=== PATIENT | female | born 1990 | race Caucasian/White ===

== ENCOUNTER 2017-09-23 15:31 | Emergency (ER) | payer MEDICAID, OTHER ==
[~2017-09-23] VITALS: Ht 157.5 cm; Wt 108.0 kg
[~2017-09-23 15:31] MED LIST: ACET-1757 PO; CEFD300C37 PO; DOCU-131 PO; IBUP-1222 PO; None at this time
[2017-09-23 15:33] VITALS: BP 139/81
[2017-09-23 16:34] LABS: BASOPHILS # (AUTO) 0.05 x10^3/uL (0-0.1); BASOPHILS % (AUTO) 1 % (0-1); EOSINOPHILS # (AUTO) 0.14 x10^3/uL (0-0.4); EOSINOPHILS % (AUTO) 2 % (1-7); LYMPHOCYTES # (AUTO) 2.71 x10^3/uL (1-3.4); LYMPHOCYTES % (AUTO) 30 % (22-44); MD NO; MEAN CORPUSCULAR HGB CONC 32.6 g/dL (32.4-35.8); MEAN CORPUSCULAR VOLUME 79.6 fL (80-100); MEAN PLATELET VOLUME 9.4 fL (7.4-10.4); MONOCYTES # (AUTO) 0.53 x10^3/uL (0.2-0.8); MONOCYTES % (AUTO) 6 % (2-9); NEUTROPHILS # (AUTO) 5.67 x10^3/uL (1.8-6.8); NEUTROPHILS % (AUTO) 62 % (42-75); PLATELET COUNT 289 x10^3/uL (130-400)
[2017-09-23 16:34] LABS: MICROSCOPIC NOT IND
[2017-09-23 16:39] LABS: CULTURE INDICATED? NO
[2017-09-23 16:43] LABS: ANION GAP 9 mmol/L (5-15); CHLORIDE 108 mmol/L (98-107)
== END 2017-09-23 17:16 | disposition home or self-care (01) ==
LOC: ED 17:00
DX: S39.012A Strain of muscle, fascia and tendon of lower back, initial encounter (principal); X58.XXXA Exposure to other specified factors, initial encounter; Y93.89 Activity, other specified; Y92.89 Other specified places as the place of occurrence of the external cause; Y99.8 Other external cause status; Z87.442 Personal history of urinary calculi
CPT/HCPCS: 36415; 80048; 81003; 82040; 85025; 99284

== ENCOUNTER 2019-01-15 20:03 | Emergency (ER) | payer BC, OTHER ==
[~2019-01-15] VITALS: Ht 157.5 cm; Wt 103.6 kg
[2019-01-15 20:05] VITALS: BP 147/81
--- NOTE | 2019-01-15 20:15 | NUR ---
Cut 4th L digit w/ knife 2 hours ago. Bleeding appears controlled. FINGERTIP PURPLE/CAP REFILL >4, POOR SENSATION. ADVISED TO STOP SMOKING TO AID IN HEALING
[2019-01-15] MEDS ORDERED: LIDOCAINE-MPF 1%, 5ML ONE (20:19)
[2019-01-15] MEDS ORDERED: NEOSPORIN OINT. PKT 1 PACKET ONE (20:19)
[2019-01-15] MEDS ORDERED: DIPH,PERTUSS(ACELL),TET VAC/PF 0.5 ML IM-VACC ONE (20:30)
[2019-01-15] MEDS ORDERED: LIDOCAINE 1%, 10ML INFIL ONE (20:30)
--- NOTE | 2019-01-15 20:57 | NUR ---
PROVIDER AT BEDSIDE SUTURING WOUND REPORT TO SENIA RAMSEY
== END 2019-01-15 21:28 | disposition home or self-care (01) ==
LOC: ED 21:00
DX: S61.215A Laceration without foreign body of left ring finger without damage to nail, initial encounter (principal); W26.0XXA Contact with knife, initial encounter; Y93.89 Activity, other specified; Y92.009 Unspecified place in unspecified non-institutional (private) residence as the place of occurrence of the external cause; Y99.8 Other external cause status
CPT/HCPCS: 12041; 90471; 90715; 99284